=== PATIENT | male | born 1945 | race Two or more races ===

== ENCOUNTER 2018-05-04 06:24 | Emergency (ER) | payer OTHER ==
[~2018-05-04] VITALS: Ht 162.6 cm; Wt 72.6 kg
[~2018-05-04 06:24] MED LIST: BACTROBAN OINT22 GM TP; BENADRYL25 MG PO; IBUPROFEN800 MG PO; ORPH100T PO; SEPTRA DS TABLE1 TAB PO; TRIPLE ANTIBIO3.5 G2 OP; ZANTAC150 MG PO
== END 2018-05-04 08:45 | disposition home or self-care (01) ==
LOC: ER 06:24
DX: J03.90 Acute tonsillitis, unspecified (principal)

== ENCOUNTER 2019-08-03 08:19 | Emergency (ER) | payer OTHER ==
[~2019-08-03] VITALS: Ht 162.6 cm; Wt 72.6 kg
[2019-08-03] MEDS ORDERED: AMPICILLIN SOD500 MG (08:35)
== END 2019-08-03 11:34 | disposition home or self-care (01) ==
LOC: ER 08:19
DX: J02.9 Acute pharyngitis, unspecified (principal)

== ENCOUNTER 2020-01-03 08:03 | Emergency (ER) | payer OTHER ==
[~2020-01-03] VITALS: Ht 162.6 cm; Wt 73.9 kg
[~2020-01-03 08:03] MED LIST changes: +AMPICILLIN SOD500 MG
== END 2020-01-03 10:03 | disposition home or self-care (01) ==
LOC: ER 08:03
DX: M54.89 Other dorsalgia (principal)